=== PATIENT | male | born 1945 | race Caucasian/White ===

== ENCOUNTER 2019-05-27 13:26 | Emergency (ER) | payer OTHER, MEDICAID ==
[~2019-05-27] VITALS: Ht 170.2 cm; Wt 68.0 kg
--- NOTE | 2019-05-27 13:26 | NUR ---
Patient BIBA BLS, transferred to bed 6. RN evaluating patient at bedside.
[2019-05-27 13:32] VITALS: BP 120/76
--- NOTE | 2019-05-27 13:40 | NUR ---
PATIENT ASSESSMENT COMPLETED AT THIS TIME. PATIENT SUPINE IN BED. SIDE RAILS UP X2. HOOKED UP TO MONITOR. AAO, WILL MONITOR CLOSELY.
[2019-05-27] MEDS ORDERED: HYDROcodone/APAP 5/325 MG 1 TAB TAB PO ONE ×2 (14:05→17:20)
[2019-05-27] MEDS ORDERED: ONDANSETRON 4 MG ODT PO ONE (14:05)
--- NOTE | 2019-05-27 14:26 | NUR ---
Patient taken to CT scan via gurney by [facility].
--- NOTE | 2019-05-27 14:26 | NUR ---
PT LEFT TO CT VIA RNEY
[2019-05-27 14:28] LABS: BASOPHILS % (AUTO) 0.5 % (0.0-2.0); EOSINOPHILS # (AUTO) 0.1 K/uL (0-0.4); EOSINOPHILS % (AUTO) 1.4 % (0.0-4.0); HEMATOCRIT 31.5 % (36-52); HEMOGLOBIN 9.9 g/dL (12.0-18.0); LYMPHOCYTES # (AUTO) 1.3 K/uL (2.0-11.5); LYMPHOCYTES % (AUTO) 15.4 % (20.5-51.1); MEAN CORPUSCULAR HEMOGLOBIN 25 pg (27-31); MEAN CORPUSCULAR HGB CONC 31 g/dL (33-37); MEAN CORPUSCULAR VOLUME 80.6 fL (80-94); MONOCYTES # (AUTO) 0.6 K/uL (0.8-1.0); MONOCYTES % (AUTO) 6.6 % (1.7-9.3); NEUTROPHILS # (AUTO) 6.7 K/uL (1.8-7.7); NEUTROPHILS % (AUTO) 76.1 % (42.2-75.2); PLATELET COUNT (AUTO) 558 K/uL (140-450); RED CELL DISTRIBUTION WIDTH 17.7 % (11.6-13.7); WHITE BLOOD COUNT (AUTO) 8.8 K/uL (4.8-10.8)
--- NOTE | 2019-05-27 14:39 | NUR ---
PT RETURNED FROM CT
[2019-05-27] MEDS ORDERED: PAX10 PO (14:46)
[2019-05-27] MEDS ORDERED: LINA145C PO (14:46)
[2019-05-27] MEDS ORDERED: SULF-58 PO (14:46)
[2019-05-27 14:48] LABS: CARBON DIOXIDE 26.4 mmol/L (21-32); CHLORIDE 97 mmol/L (98-107); CREATININE 1.1 mg/dL (0.7-1.3); GLUCOSE 136 mg/dL (74-106); POTASSIUM 4.4 mmol/L (3.5-5.1); SODIUM SERUM 135 mmol/L (136-145); UREA NITROGEN, BLOOD 17 mg/dL (7-18)
[2019-05-27 14:54] LABS: ALBUMIN 2.9 g/dL (3.4-5.0); ASPARTATE AMINOTRANSFERASE 9 U/L (15-37); LIPASE 69 U/L (73-393); TOTAL BILIRUBIN 0.2 mg/dL (0.0-1.0)
--- NOTE | 2019-05-27 16:15 | NUR ---
pt resting in bed, no new needs at this time.
--- NOTE | 2019-05-27 16:44 | NUR ---
CALLED LAB TO CHECK ON URINE THAT WAS SENT AT 1355, PER NABEEL, "IT IS NOT DONE YET"
--- NOTE | 2019-05-27 16:49 | NUR ---
SENT ANOTHER URINE SAMPLE TO LAB, HANDED IT OFF TO NABEEL.
[2019-05-27 17:17] LABS: APPEARANCE,URINE CLOUDY (CLEAR); BILIRUBIN,URINE NEGATIVE (NEGATIVE); BLOOD, URINE 2+ (NEGATIVE); COLOR,URINE YELLOW (YELLOW); LEUKOCYTE ESTERASE ,URINE 3+ (NEGATIVE); NITRITE, URINE NEGATIVE (NEGATIVE); UGLUCOSE NEGATIVE (NEGATIVE)
--- NOTE | 2019-05-27 17:35 | NUR ---
PT REFUSED NORCO, STATES HE WANTS MORPHINE. NORCO TABLET WASTED WITH EMRE HO DUE TO IT ALREADY BEING OPENED. DR. MOSES MADE AWARE AND HE WILL ORDER MORPHINE FOR HIM
[2019-05-27 17:43] LABS: WBC,URINE 80-100 /HPF (0-5); YEAST,URINE Few /HPF (None Seen)
[2019-05-27 17:45] LABS: TRICHOMONAS,URINE Moderate /HPF (None Seen)
[2019-05-27] MEDS ORDERED: MORPHINE SULFATE 4 MG/ML SYR IM ONE (17:45)
--- NOTE | 2019-05-27 18:16 | NUR ---
Dr. Campa is re-evaluating the patient at bedside.
[2019-05-27 19:00] VITALS: BP 112/64
--- NOTE | 2019-05-27 19:01 | NUR ---
Patient discharged with v/s stable. Written and verbal after care instructions given and explained. Patient alert, oriented and verbalized understanding of instructions. Ambulatory with steady gait. All questions addressed prior to discharge. ID band removed. Patient advised to follow up with PMD. Rx of NORCO & METRONIDAZOLE given. Patient educated on indication of medication including possible reaction and side effects. Opportunity to ask questions provided and answered.
--- NOTE | 2019-05-29 18:17 | NUR ---
ATTEMPT MADE TO CONTACT PT TO INFORM OF POSTIVE URINE CULTURE, PT ANSWERED AND STATED "CALL MY SON" BUT GAVE INCOMPLETE PHONE NUMBER. WILL TRY TO RECONTACT PT.
== END 2019-05-27 19:01 | disposition home or self-care (01) ==
LOC: MED 13:26
DX: S32.010A Wedge compression fracture of first lumbar vertebra, initial encounter for closed fracture (principal); A59.09 Other urogenital trichomoniasis; I10 Essential (primary) hypertension; Z86.73 Personal history of transient ischemic attack (TIA), and cerebral infarction without residual deficits; X58.XXXA Exposure to other specified factors, initial encounter; Y93.89 Activity, other specified; Y92.89 Other specified places as the place of occurrence of the external cause; Y99.8 Other external cause status
CPT/HCPCS: 36415; 74176; 80053; 81001; 83690; 85025; 87086; 87186; 96372; 99284; J2270; Q0162

== ENCOUNTER 2019-07-22 13:25 | Inpatient (IN) | payer OTHER, MEDICAID ==
[~2019-07-22] VITALS: Ht 172.7 cm; Wt 72.6 kg
[~2019-07-22 13:25] MED LIST: LINA145C PO; PAX10 PO; SULF-58 PO
--- NOTE | 2019-07-22 13:25 | NUR ---
Patient BIBA ALS accompanied by [facility], transferred to bed 5. RN evaluating patient at bedside.
--- NOTE | 2019-07-22 13:25 | NUR ---
73 y/o M biba for generalized weakness since this morning. Pt is bedbound due to neck surgery in 2018. Pt able to move left upper extremitiy. Pt at baseline. A&O x4. GCS 15. Pt c/o suprapubic pain, pain level 8/10 pressure pain. Pt has chan in place. Rash is noted to left lower leg. Redness and blistering. Pt reports feeling a burning sensation to left lower leg. HOB elevated, bed in lowest position, bed rail up x1. Waiting for ERMD to evaluate pt. Allergies: codeine Med hx: HTN
[2019-07-22 13:38] VITALS: BP 132/71
--- NOTE | 2019-07-22 14:03 | NUR ---
Dr. Moon is evaluating the patient at bedside.
[2019-07-22] MEDS ORDERED: NACL 0.9% 2,200 ML IV ONE (14:05)
--- NOTE | 2019-07-22 14:17 | NUR ---
EKG completed by EMT at bedside.
--- NOTE | 2019-07-22 14:20 | NUR ---
technical operations specialist at bedside.
--- NOTE | 2019-07-22 14:25 | NUR ---
1425-# 16 FR Choi catheter with 10 ml utilizing sterile technique. Immediate return of YELLOW ml urine noted. Bedside drainage bag placed below level of bladder. Urine sample collected and sent to lab. Pt tolerated procedure GOOD.
[2019-07-22 14:44] LABS: BASOPHILS # (AUTO) 0.1 K/uL (0.00-0.22); BASOPHILS % (AUTO) 0.5 % (0.0-2.0); EOSINOPHILS # (AUTO) 0.2 K/uL (0-0.4); EOSINOPHILS % (AUTO) 2.2 % (0.0-4.0); HEMATOCRIT 32.2 % (36-52); HEMOGLOBIN 9.9 g/dL (12.0-18.0); LYMPHOCYTES # (AUTO) 1.4 K/uL (2.0-11.5); LYMPHOCYTES % (AUTO) 13.6 % (20.5-51.1); MEAN CORPUSCULAR HEMOGLOBIN 24 pg (27-31); MEAN CORPUSCULAR HGB CONC 31 g/dL (33-37); MEAN CORPUSCULAR VOLUME 79.6 fL (80-94); MONOCYTES # (AUTO) 0.7 K/uL (0.8-1.0); MONOCYTES % (AUTO) 6.2 % (1.7-9.3); NEUTROPHILS # (AUTO) 8.2 K/uL (1.8-7.7); NEUTROPHILS % (AUTO) 77.5 % (42.2-75.2); PLATELET COUNT (AUTO) 481 K/uL (140-450); RED BLOOD CELL COUNT(AUTO) 4.05 MIL/uL (4.20-6.10); RED CELL DISTRIBUTION WIDTH 21.4 % (11.6-13.7); WHITE BLOOD COUNT (AUTO) 10.6 K/uL (4.8-10.8)
[2019-07-22 14:46] LABS: APPEARANCE,URINE CLEAR (CLEAR); BILIRUBIN,URINE 1+ (NEGATIVE); BLOOD, URINE 3+ (NEGATIVE); COLOR,URINE YELLOW (YELLOW); LEUKOCYTE ESTERASE ,URINE 3+ (NEGATIVE); NITRITE, URINE POSITIVE (NEGATIVE); PH,URINE 5.5 (5.0-9.0); UGLUCOSE NEGATIVE (NEGATIVE)
[2019-07-22 14:52] LABS: HYALINE CASTS, URINE 0-10 /LPF (None Seen); RBC,URINE 50-80 /HPF (0-5); WBC,URINE 80-100 /HPF (0-5)
[2019-07-22 15:03] LABS: PROTHROMBIN TIME 9.9 secs (10.8-13.4)
[2019-07-22] MEDS ORDERED: KETOROLAC 30 MG/ML VIAL IVP ONE (15:05)
--- NOTE | 2019-07-22 15:06 | NUR ---
Note ranjeet in EDM - 07/22/19 at 1538 by STEPHENIEJJ # 16 FR Choi catheter with 10 ml utilizing sterile technique. Immediate return of YELLOW ml urine noted. Bedside drainage bag placed below level of bladder. Urine sample collected and sent to lab. Pt tolerated procedure GOOD.
[2019-07-22] MEDS ORDERED: LEVOFLOXACIN 500 MG/D5W PREMIX 100 ML IV ONE (15:35)
[2019-07-22 15:36] LABS: ALBUMIN 2.9 g/dL (3.4-5.0); ANION GAP 11.9 (8-16); ASPARTATE AMINOTRANSFERASE 12 U/L (15-37); CARBON DIOXIDE 29.9 mmol/L (21-32); CHLORIDE 100 mmol/L (98-107); CREATININE 0.8 mg/dL (0.6-1.3); GLUCOSE 89 mg/dL (74-106); POTASSIUM 3.8 mmol/L (3.5-5.1); SODIUM SERUM 138 mmol/L (136-145); TOTAL BILIRUBIN 0.2 mg/dL (0.0-1.0); UREA NITROGEN, BLOOD 11 mg/dL (7-18)
[2019-07-22] MEDS: NACL 0.9% 1,000 ML IV SCH (15:42)
[2019-07-22] MEDS ORDERED: ONDANSETRON 4 MG/2 ML VIAL IM/IVP PRN (15:45)
[2019-07-22] MEDS ORDERED: ACETAMINOPHEN 325 MG TAB PO PRN (15:45)
[2019-07-22] MEDS ORDERED: MORPHINE SULFATE 2 MG/ML SYR IVP PRN (15:45)
[2019-07-22] MEDS ORDERED: VANCOMYCIN PER PHARMACY MC PRN (16:20)
[2019-07-22 16:34] LABS: CHOL/HDL RATIO 6.5 (1-4.5); FREE T4 (FREE THYROXINE) 1.08 ng/dL (0.76-1.46); MAGNESIUM 1.9 mg/dL (1.8-2.4); PHOSPHORUS 2.9 mg/dL (2.5-4.9); THYROID STIMULATING HORMONE 1.37 uIU/mL (0.34-3.74)
[2019-07-22 16:40] VITALS: BP 151/77
--- NOTE | 2019-07-22 16:40 | NUR ---
Patient will be admitted to care of Dr. Gallo. Admited to [facility]. Will go to room 110A. Belongings list completed. Report given to EMRE Elizabeth.
--- NOTE | 2019-07-22 16:40 | NUR ---
Transfer of care and report given to EMRE Elizabeth
--- NOTE | 2019-07-22 16:40 | NUR ---
RECIEVE BEDSIDE REPORT FROM ER NURSE, PRATIMA, PT BROUGHT IN ON CARLEE, PT IS STABLE, IV SITE IS FUA 24G, RUNNING NORMAL SALINE BOLUS, DOMINGUEZ CATHETER IN PLACE WITH YELLOW URINE, TRANSFERRED PT ONTO BED WITHOUT PROBLEMS, INTRODUCE PT TO ROOM, UPDATE WHITEBOARD, CALL LIGHT WITHIN REACH.
[2019-07-22] MEDS ORDERED: ENAL5TAB34 PO (17:03)
[2019-07-22] MEDS: MORPHINE SULFATE 2 MG/ML SYR IVP PRN ×2 (17:30→21:43)
[2019-07-22] MEDS ORDERED: INFLUENZA VACCINE QUAD 0.5 ML SYR IMVAC PRN (18:25)
[2019-07-22] MEDS: VANCOMYCIN 1,000 MG in DEXTROSE 5% 250 ML IV SCH (18:25)
--- NOTE | 2019-07-22 18:25 | NUR ---
ADMINISTERED ORDERED MEDICATION, EDUCATION GIVEN, PT VERBALIZED UNDERSTANDING, PT IS STABLE, NO SIGNS OF DISTRESS NOTED, AT BEDSIDE, CALL LIGHT WITHIN REACH.
--- NOTE | 2019-07-22 19:24 | NUR ---
GAVE BEDSIDE REPORT TO NIGHT NURSE FOR CONTINUITY OF CARE, PT IS STABLE, CALL LIGHT WITHIN REACH.
--- NOTE | 2019-07-22 19:25 | NUR ---
RECEIVED REPORT FROM DAY SHIFT NURSE. PT LYING IN BED. AAOX4. AT BEDSIDE. DENIES PAIN OR SOB. ON ROOM AIR. PT IS PARAPLEGIC, WEAKNESS ON RIGHT ARM. DOMINGUEZ CATH IN PLACE DRAINING CLEAR YELLOW URINE. PT HAS RASH WITH BLISTERS ON LEFT LEG. DISCUSSED PLAN OF CRAE, PT VERBALIZED UNDERSTANDING. SAFETY PRECAUTION IN PLACE. CALL LIGHT WITHIN REACH.
[2019-07-22 20:00] VITALS: BP 115/69
[2019-07-22] MEDS ORDERED: PIPERACILLIN/TAZOBACTAM 3.375 GM in DEXTROSE 5% 50 ML IV SCH (21:00)
[2019-07-22] MEDS ORDERED: PIPERACILLIN/TAZOBACTAM 3.375 GM VIAL IV ONE (21:14)
--- NOTE | 2019-07-22 21:43 | NUR ---
PT C/O PAIN 01/22. MORPHINE 2 MG IVP GIVEN.
--- NOTE | 2019-07-22 23:00 | NUR ---
PT LYING IN BED, WATCHING TV. ALL NEEDS ATTENDED AT THIS TIME. DENIES PAIN OR SOB.
[2019-07-23] VITALS: BP 145/76
[2019-07-23] MEDS ORDERED: MELATONIN 3 MG TAB PO PRN (01:00)
--- NOTE | 2019-07-23 01:05 | NUR ---
PT C/O UNABLE TO SLEEP. DR. ASHBY ORDERED MELATONIN 3 MG PO.
--- NOTE | 2019-07-23 03:00 | NUR ---
PT SLEEPING. NO S/S OF RESP DISTRESS. NO S/S OF PAIN OR DISCOMFORT. PT KEPT COMFORTABLE. CALL LIGHT WITHIN REACH.
[2019-07-23] MEDS: NACL 0.9% 1,000 ML IV SCH ×3 (04:30→21:42)
--- NOTE | 2019-07-23 05:00 | NUR ---
PT SLEEPING BUT WAKES EASILY. RESP EVEN AND UNLABORED. IVF INFUSING WELL. SAFETY PRECAUTION IN PLACE.
[2019-07-23 07:05] LABS: BASOPHILS # (AUTO) 0.1 K/uL (0.00-0.22); BASOPHILS % (AUTO) 0.9 % (0.0-2.0); EOSINOPHILS # (AUTO) 0.3 K/uL (0-0.4); EOSINOPHILS % (AUTO) 4.1 % (0.0-4.0); HEMATOCRIT 28.2 % (36-52); HEMOGLOBIN 8.6 g/dL (12.0-18.0); LYMPHOCYTES # (AUTO) 1.8 K/uL (2.0-11.5); LYMPHOCYTES % (AUTO) 23.9 % (20.5-51.1); MEAN CORPUSCULAR HEMOGLOBIN 24 pg (27-31); MEAN CORPUSCULAR HGB CONC 31 g/dL (33-37); MEAN CORPUSCULAR VOLUME 78.9 fL (80-94); MONOCYTES # (AUTO) 0.6 K/uL (0.8-1.0); MONOCYTES % (AUTO) 7.4 % (1.7-9.3); NEUTROPHILS # (AUTO) 4.9 K/uL (1.8-7.7); NEUTROPHILS % (AUTO) 63.7 % (42.2-75.2); PLATELET COUNT (AUTO) 413 K/uL (140-450); RED BLOOD CELL COUNT(AUTO) 3.58 MIL/uL (4.20-6.10); RED CELL DISTRIBUTION WIDTH 21.7 % (11.6-13.7); WHITE BLOOD COUNT (AUTO) 7.6 K/uL (4.8-10.8)
--- NOTE | 2019-07-23 07:30 | NUR ---
ENDORSED PT TO DAY SHIFT NURSE. PT IN STABLE CONDITION.
--- NOTE | 2019-07-23 07:31 | NUR ---
RECEIVED BEDSIDE REPORT FROM NIGHT NURSE, PT AA0X4, RESTING IN BED, PT IS STABLE, NO SIGNS OF DISTRESS NOTED, ARVIN 24G RUNNING NS AT 100ML, SAFETY MEASURES IN PLACE, CALL LIGHT WITHIN REACH, WILL CONTINUE TO MONITOR,
[2019-07-23 07:52] LABS: ANION GAP 9.8 (8-16); CARBON DIOXIDE 28.4 mmol/L (21-32); CHLORIDE 108 mmol/L (98-107); MAGNESIUM 1.8 mg/dL (1.8-2.4); POTASSIUM 4.2 mmol/L (3.5-5.1); SODIUM SERUM 142 mmol/L (136-145)
[2019-07-23 07:53] LABS: CREATININE 0.9 mg/dL (0.6-1.3); GLUCOSE 100 mg/dL (74-106); UREA NITROGEN, BLOOD 10 mg/dL (7-18)
[2019-07-23 08:00] VITALS: BP 140/70
[2019-07-23 08:07] LABS: T4 (THYROXINE) 8.9 ug/dL (4.5-12.0)
[2019-07-23] MEDS: LACTOBACILLUS RHAMNOSUS GG 1 EACH CAP PO SCH (08:38)
[2019-07-23] MEDS: ENALAPRIL 5 MG TAB PO SCH (08:39)
[2019-07-23] MEDS: PARoxetine 20 MG TAB PO SCH (08:39)
[2019-07-23] MEDS: MORPHINE SULFATE 2 MG/ML SYR IVP PRN (08:41)
--- NOTE | 2019-07-23 08:41 | NUR ---
GAVE PT MORPHINE FOR SEVER ABDOMINAL PAIN OF 8/10, CRAMPING AND PRESSURE IN THE AREA, PT EDUCATION GIVEN, PT VERBALIZE UNDERSTANDING, PT TOLERATED WELL, CALL LIGHT WITHIN REACH.
--- NOTE | 2019-07-23 08:53 | NUR ---
ADMINISTERED ORDERED MEDICATION, EDUCATION GIVEN, PT VERBALIZED UNDERSTANDING, PT IS STABLE, CALL LIGHT WITHIN REACH.
--- NOTE | 2019-07-23 11:26 | NUR ---
PT IS STABLE, REPOSITION PT, PT TOLERATED CHANGE WELL, CALL LIGHT WITHIN REACH.
[2019-07-23 11:57] LABS: CHOL/HDL RATIO 6.6 (1-4.5)
[2019-07-23] MEDS: VANCOMYCIN 1,000 MG in DEXTROSE 5% 250 ML IV SCH (12:33)
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
[2019-07-23] MEDS: PETROLATUM WHITE 30 GM TUBE TP SCH (12:35)
[2019-07-23 16:00] VITALS: BP 117/76
[2019-07-23] MEDS: HYDROcodone/APAP 7.5/325 MG 1 TAB PO PRN (16:54)
--- NOTE | 2019-07-23 16:54 | NUR ---
GAVE PT NORCO FOR ABDOMINAL PAIN OF 66/10, DR CRAIN AWARE PT'S BP: 117/76 AND HR:54, DR SAID OKAY TO GIVE MEDICATION, PT EDUCATION GIVEN, PT TOLERATED WELL, PT IS STABLE, CALL LIGHT WITHIN REACH.
--- NOTE | 2019-07-23 19:29 | NUR ---
GAVE BEDSIDE REPORT TO NIGHT NURSE FOR CONTINUITY OF CARE, PT IS STABLE
--- NOTE | 2019-07-23 19:30 | NUR ---
RECEIVED BEDSIDE REPORT FROM DAY SHIFT NURSE. PATIENT IS AWAKE, ALERT, AND COOPERATIVE. RESPIRATION EVEN UNLABORED ON ROOM AIR. NO DISTRESS NOTED. SKIN IS WARM AND DRY. IV PATENT AND INTACT. FAMILY MEMBER AT BEDSIDE. ALL SAFETY MEASURES IN PLACE. BED IS AT LOW POSITION. CALL LIGHT WITHIN REACH AND VERBALIZES ITS USE. WILL CONTINUE TO MONITOR.
--- NOTE | 2019-07-23 19:56 | NUR ---
PAIN LEVEL 6/10
--- NOTE | 2019-07-23 20:15 | NUR ---
INITIAL ASSESSMENT DONE. VITALS WERE TAKEN. DOMINGUEZ CATHETER NOTED DRAINING YELLOW URINE. LEFT LOWER LEG CELLULITIS WITH BLISTER NOTED. WILL CONTINUE TO MONITOR.
[2019-07-23] MEDS: MUPIROCIN CA NASAL 2% 1GM TUBE NS SCH (20:35)
[2019-07-23] MEDS ORDERED: DICYCLOMINE HCL LIQUID 10 MG/5 ML UDC PO SCH (20:35)
[2019-07-23] MEDS: ATORVASTATIN 20 MG TAB PO SCH (20:35)
[2019-07-23] MEDS: CHLORHEXADINE GLUC 2% CLOTH TP SCH (20:36)
--- NOTE | 2019-07-23 20:36 | NUR ---
ALL SCHEDULED MEDS WERE GIVEN PER ORDER. PROVIDED CHLORHEXIDINE WIPES PER ORDER. WILL CONTINUE TO MONITOR.
--- NOTE | 2019-07-23 21:00 | NUR ---
PATIENT COMPLAINED OF ABDOMINAL PAIN. PRN ABDOMINAL PAIN MEDICATION GIVEN PER ORDER. WILL CONTINUE TO MONITOR.
--- NOTE | 2019-07-23 22:04 | NUR ---
CHECKED PATIENT. PATIENT WATCHING TV RESPIRATION EVEN UNLABORED ON ROOM AIR. NO DISTRESS NOTED. WILL CONTINUE TO MONITOR.
--- NOTE | 2019-07-23 23:55 | NUR ---
VITALS WERE TAKEN. PATIENT IN STABLE CONDITION. NO DISTRESS NOTED. WILL CONTINUE TO MONITOR.
[2019-07-24] VITALS: BP 125/66
--- NOTE | 2019-07-24 01:52 | NUR ---
CHECKED PATIENT. PATIENT SLEEPING RESPIRATION EVEN UNLABORED ON ROOM AIR. NO DISTRESS NOTED. WILL CONTINUE TO MONITOR.
[2019-07-24] MEDS: NACL 0.9% 1,000 ML IV SCH ×2 (03:26→18:21)
--- NOTE | 2019-07-24 03:55 | NUR ---
CHECKED PATIENT. PATIENT IS SLEEPING RESPIRATION EVEN UNLABORED ON ROOM AIR. NO DISTRESS NOTED. WILL CONTINUE TO MONITOR.
[2019-07-24 06:27] LABS: ANION GAP 10.6 (8-16); CARBON DIOXIDE 29.3 mmol/L (21-32); CHLORIDE 109 mmol/L (98-107); CREATININE 0.8 mg/dL (0.6-1.3); GLUCOSE 101 mg/dL (74-106); POTASSIUM 3.9 mmol/L (3.5-5.1); SODIUM SERUM 145 mmol/L (136-145); UREA NITROGEN, BLOOD 10 mg/dL (7-18)
[2019-07-24 06:30] LABS: BASOPHILS # (AUTO) 0.1 K/uL (0.00-0.22); BASOPHILS % (AUTO) 1.3 % (0.0-2.0); EOSINOPHILS # (AUTO) 0.3 K/uL (0-0.4); EOSINOPHILS % (AUTO) 4.8 % (0.0-4.0); HEMATOCRIT 28.6 % (36-52); HEMOGLOBIN 8.9 g/dL (12.0-18.0); LYMPHOCYTES # (AUTO) 1.6 K/uL (2.0-11.5); LYMPHOCYTES % (AUTO) 26.3 % (20.5-51.1); MEAN CORPUSCULAR HEMOGLOBIN 25 pg (27-31); MEAN CORPUSCULAR HGB CONC 31 g/dL (33-37); MEAN CORPUSCULAR VOLUME 79.2 fL (80-94); MONOCYTES # (AUTO) 0.5 K/uL (0.8-1.0); NEUTROPHILS # (AUTO) 3.7 K/uL (1.8-7.7); NEUTROPHILS % (AUTO) 59.6 % (42.2-75.2); PLATELET COUNT (AUTO) 408 K/uL (140-450); RED BLOOD CELL COUNT(AUTO) 3.61 MIL/uL (4.20-6.10); RED CELL DISTRIBUTION WIDTH 21.6 % (11.6-13.7); WHITE BLOOD COUNT (AUTO) 6.2 K/uL (4.8-10.8)
[2019-07-24 06:34] LABS: MAGNESIUM 1.6 mg/dL (1.8-2.4); PHOSPHORUS 3.3 mg/dL (2.5-4.9)
[2019-07-24] MEDS: VANCOMYCIN 1,000 MG in DEXTROSE 5% 250 ML IV SCH ×2 (06:44→23:26)
--- NOTE | 2019-07-24 07:09 | NUR ---
ENDORSED PATIENT TO DAY SHIFT NURSE. PATIENT IS IN STABLE CONDITION.
--- NOTE | 2019-07-24 07:10 | NUR ---
RECEIVED BEDSIDE REPORT FROM NIGHT NURSE, PT IS AAOX4, PT IS STABLE, RESPIRATIONS ARE EVEN AND UNLABORED ON ROOM AIR, NO SIGNS OF DISTRESS NOTED, ARVIN 24G RUNNING NS AT 100ML/H, SAFETY MEASURES IN PLACE, UPDATE WHITE BOARD AND INTRODUCE SELF, CALL LIGHT WITHIN REACH.
[2019-07-24 08:00] VITALS: BP 146/77
--- NOTE | 2019-07-24 08:22 | NUR ---
PATIENT HAS BEEN SCREENED AND CATEGORIZED MODERATE NUTRITION RISK. PATIENT WILL BE SEEN WITHIN 3-5 DAYS OF ADMISSION. 07/25/19 - 07/27/19 [facility]STA [facility] MBA,RD
[2019-07-24] MEDS: PETROLATUM WHITE 30 GM TUBE TP SCH (09:00)
[2019-07-24] MEDS ORDERED: MAG SULF 2000 MG/WATER PREMIX 50 ML IV SCH (09:00)
[2019-07-24] MEDS: LACTOBACILLUS RHAMNOSUS GG 1 EACH CAP PO SCH (09:15)
[2019-07-24] MEDS: ENALAPRIL 5 MG TAB PO SCH (09:16)
[2019-07-24] MEDS: PARoxetine 20 MG TAB PO SCH (09:16)
[2019-07-24] MEDS: DICYCLOMINE HCL LIQUID 10 MG/5 ML UDC PO PRN (09:17)
--- NOTE | 2019-07-24 09:17 | NUR ---
GAVE PT BENTYL FOR ABDOMINAL PAIN, EDUCATION GIVEN, PT TOLERATED WELL, PT IS STABLE, CALL LIGHT WITHIN REACH.
[2019-07-24] MEDS: DOCUSATE SODIUM 100 MG GELCAP PO PRN (09:29)
--- NOTE | 2019-07-24 09:29 | NUR ---
GAVE PT COLACE FOR CONSTIPATION, EDUCATION GIVEN, PT VERBALIZED UNDERSTANDING, PT TOLERATED WELL, PT IS STABLE, CALL LIGHT WITHIN REACH.
--- NOTE | 2019-07-24 11:02 | NUR ---
PT IS ASLEEP IN BED, PT IS STABLE, NO SIGNS OF DISTRESS NOTED, RESPIRATIONS ARE EVEN AND UNLABORED ON ROOM AI, CALL LIGHT WITHIN REACH.
[2019-07-24] MEDS: HYDROcodone/APAP 7.5/325 MG 1 TAB PO PRN (13:02)
--- NOTE | 2019-07-24 13:02 | NUR ---
GAVE NORCO FOR ABDOMINAL PAIN OF 6/10, PT STATES IT IS THROBBING, PT EDUCATION GIVEN, PT VERBALIZE UNDERSTANDING, PT TOLERATED WELL, AT BEDSIDE, CALL LIGHT WITHIN REACH.
--- NOTE | 2019-07-24 15:13 | NUR ---
PT RESTING IN BED, WATCHING TV, NO SIGNS OF DISTRESS NOTED, RESPIRATIONS ARE EVEN AND UNLABORED ON ROOM AIR, CALL LIGHT WITHIN REACH.
[2019-07-24 16:00] VITALS: BP 99/56
[2019-07-24] MEDS: MORPHINE SULFATE 2 MG/ML SYR IVP PRN (17:29)
--- NOTE | 2019-07-24 17:29 | NUR ---
GAVE MORPHINE FOR SEVERE ABDOMINAL PAIN OF 8/10, PT IS RUBBING SITE, STATES HE CAN TOLERATE THE PAIN, MEDICATION EDUCATION GIVEN, PT VERBALIZED UNDERSTANDING, PT TOLERATED MEDICATION WELL, PT IS STABLE, NO SIGNS OF DISTRESS, AT BEDSIDE, CALL LIGHT WITHIN REACH.
--- NOTE | 2019-07-24 19:13 | NUR ---
GAVE REPORT TO NIGHT NURSE FOR CONTINUITY OF CARE, PT IS STABLE.
--- NOTE | 2019-07-24 19:15 | NUR ---
RECEIVED BEDSIDE REPORT FROM DAY SHIFT NURSE. PATIENT IS AWAKE, ALERT, AND COOPERATIVE. RESPIRATION EVEN UNLABORED ON ROOM AIR. NO DISTRESS NOTED. SKIN IS WARM AND DRY. IV PATENT AND INTACT. DOMINGUEZ CATHETER DRAINING YELLOW URINE. FAMILY AT BEDSIDE. PLAN OF CARE WAS DISCUSSED. ALL SAFETY MEASURES IN PLACE. BED IS AT LOW POSITION. CALL LIGHT WITHIN REACH AND VERBALIZES ITS USE.
[2019-07-24] MEDS: CHLORHEXADINE GLUC 2% CLOTH TP SCH (19:16)
[2019-07-24] MEDS: MUPIROCIN CA NASAL 2% 1GM TUBE NS SCH (19:16)
--- NOTE | 2019-07-24 20:10 | NUR ---
INITIAL ASSESSMENT DONE. VITALS WERE TAKEN. PATIENT IN STABLE CONDITION. NO DISTRESS NOTED. WILL CONTINUE TO MONITOR.
[2019-07-24] MEDS: ATORVASTATIN 20 MG TAB PO SCH (21:06)
--- NOTE | 2019-07-24 21:10 | NUR ---
ALL SCHEDULED MEDS WERE GIVEN PER ORDER. NO ASE NOTED. WILL CONTINUE TO MONITOR.
--- NOTE | 2019-07-24 23:04 | NUR ---
CHECKED PATIENT. PATIENT SLEEPING RESPIRATION EVEN UNLABORED ON ROOM AIR. NO DISTRESS NOTED. WILL CONTINUE TO MONITOR.
[2019-07-25] VITALS: BP 126/62
--- NOTE | 2019-07-25 00:15 | NUR ---
VITALS WERE TAKEN. PATIENT IN STABLE CONDITION. NO DISTRESS NOTED. WILL CONTINUE TO MONITOR.
--- NOTE | 2019-07-25 02:07 | NUR ---
CHECKED PATIENT. PATIENT SLEEPING RESPIRATION EVEN UNLABORED ON ROOM AIR. NO DISTRESS NOTED, WILL CONTINUE TO MONITOR.
[2019-07-25] MEDS: NACL 0.9% 1,000 ML IV SCH ×2 (03:42→13:41)
--- NOTE | 2019-07-25 04:20 | NUR ---
PROVIDED GOOD PERICARE AND DOMINGUEZ CATHETER CARE.
--- NOTE | 2019-07-25 07:14 | NUR ---
ENDORSED PATIENT TO DAY SHIFT NURSE. PATIENT IS IN STABLE CONDITION.
--- NOTE | 2019-07-25 07:15 | NUR ---
RECEIVED PATIENT FROM PANEL COVERER NURSE FOR CONTINUITY OF CARE. PATIENT IS SLEEPING AT THIS TIME, ANGUILLAN SPEAKING. RESPIRATIONS EVEN AND UNLABORED, ROOM AIR. VISIBLE CHEST RISE NOTED. NO EDEMA NOTED. ABDOMEN ROUND AND NONTENDER. REGULAR DIET. SKIN WARM, DRY, AND LEFT LOWER LEG CELLULITIS, OPEN TO AIR. IV IN THE LEFT ARM G24 RUNNING NS AT 100 ML/HR. PATIENT HAS DOMINGUEZ CATHETER. PATIENT IS BEDBOUND. CONTACT PRECAUTION FOR + MRSA NARES. BED IN LOW POSITION. CALL LIGHT IS WITHIN REACH. WILL CONTINUE TO MONITOR
--- NOTE | 2019-07-25 07:51 | NUR ---
AND THE RESIDENT DOCTORS MADE ROUNDS
[2019-07-25 07:53] LABS: BASOPHILS # (AUTO) 0.1 K/uL (0.00-0.22); EOSINOPHILS # (AUTO) 0.3 K/uL (0-0.4); EOSINOPHILS % (AUTO) 4.6 % (0.0-4.0); HEMATOCRIT 29.6 % (36-52); HEMOGLOBIN 9.1 g/dL (12.0-18.0); LYMPHOCYTES # (AUTO) 1.7 K/uL (2.0-11.5); LYMPHOCYTES % (AUTO) 22.5 % (20.5-51.1); MEAN CORPUSCULAR HEMOGLOBIN 24 pg (27-31); MEAN CORPUSCULAR HGB CONC 31 g/dL (33-37); MEAN CORPUSCULAR VOLUME 79.2 fL (80-94); MONOCYTES # (AUTO) 0.5 K/uL (0.8-1.0); MONOCYTES % (AUTO) 6.7 % (1.7-9.3); NEUTROPHILS # (AUTO) 4.9 K/uL (1.8-7.7); NEUTROPHILS % (AUTO) 65.2 % (42.2-75.2); PLATELET COUNT (AUTO) 434 K/uL (140-450); RED BLOOD CELL COUNT(AUTO) 3.73 MIL/uL (4.20-6.10); WHITE BLOOD COUNT (AUTO) 7.5 K/uL (4.8-10.8)
[2019-07-25 07:54] LABS: ANION GAP 11.2 (8-16); CARBON DIOXIDE 27.8 mmol/L (21-32); CHLORIDE 108 mmol/L (98-107); CREATININE 0.8 mg/dL (0.6-1.3); GLUCOSE 95 mg/dL (74-106); SODIUM SERUM 143 mmol/L (136-145); UREA NITROGEN, BLOOD 11 mg/dL (7-18)
[2019-07-25 07:57] LABS: MAGNESIUM 1.8 mg/dL (1.8-2.4); PHOSPHORUS 3.2 mg/dL (2.5-4.9)
[2019-07-25 08:00] VITALS: BP 159/76
[2019-07-25] MEDS: PARoxetine 20 MG TAB PO SCH (08:51)
[2019-07-25] MEDS: LACTOBACILLUS RHAMNOSUS GG 1 EACH CAP PO SCH (08:51)
--- NOTE | 2019-07-25 08:51 | NUR ---
GIVEN MORNING MEDICATIONS PO. GIVEN BENTYL FOR ABDOMINAL PAIN. HEPARIN IN THE ABDOMEN. PLATE IS 434. EXPLAINED TO PATIENT AND FAMILY MEDS AND SIDE EFFECTS. THEY VERBALIZED UNDERSTANDING. BED IN LOW POSITION. CALL LIGHT IS WITHIN REACH. WILL CONTINUE TO MONITOR
[2019-07-25] MEDS: ENALAPRIL 5 MG TAB PO SCH (08:52)
[2019-07-25] MEDS: DICYCLOMINE HCL LIQUID 10 MG/5 ML UDC PO PRN ×2 (08:53→13:21)
[2019-07-25] MEDS: PETROLATUM WHITE 30 GM TUBE TP SCH (09:06)
--- NOTE | 2019-07-25 09:09 | NUR ---
FANY WOUND CARE NURSE EXAMINED PATIENT WOUND. VERSATEL DRESSING IN PLACE
--- NOTE | 2019-07-25 09:25 | NUR ---
WOUND CARE EVALUATION NOTES: REASON FOR EVALUATION: LLE CELLULITIS AND A INTACT BLISTER WOUND ASSESSMENT DONE WITH THIS 73 Y/O MALE PT. ADMITTED WITH LLE CELLULITIS AND BLISTERS, WOUND ASSESSMENT DONE WITH DAUGHTER AND SON IN LAW AT BEDSIDE. PT IS AAX4, SKIN IS WARM AND DRY. BLE NO HAIR GROWTH, NO EDEMA TO BILATERAL LOWER LEGS. BILATERAL DORSAL PEDAL PULSES PRESENT. ACCORDING TO DAUGHTER THE ERYTHEMA AND SWELLING HAS IMPROVING A LOT. PLAN OF CARE DISCUSSED WITH PRIMARY RN, DAUGHTER AND PT. PT. VERBALIZING UNDERSTANDING INTEGUMENTARY: -LEFT LATERAL LOWER EXTREMITIES CLEAR FLUIDS BLISTER WITH SKIN INTACT, 4X3 CM, CLARK WOUND SKIN INTACT, NO ERYTHEMA, NO SWELLING, NO C/O PAIN -BLE DRYNESS SKIN INTACT RECOMMENDATIONS: -APPLY HYGRAGUARD TO BLE SKIN AREA BID AND LEAVE IT OPEN TO AIR -APPLY VERSATEL DRESSING TO LLE BLISTER CHANGE Q7 DAYS AND PRN -OFFLOAD BILATERAL HEELS BY PLACING PILLOWS UNDER CALVES AT ALL TIMES, UNLESS OTHERWISE CONTRAINDICATED -KEEP SKIN CLEAN AND DRY AT ALL TIMES. -PRESSURE REDISTRIBUTION SURFACE THERAPY. RECOMMENDATIONS DISCUSSED WITH PRIMARY RN. PLEASE CONTACT WOUND CARE NURSE FOR ANY QUESTIONS AND CHANGES IN SKIN CONDITION.
--- NOTE | 2019-07-25 11:32 | NUR ---
PATIENT IS AWAKE, SPEAKING WITH THE . DENIES ANY PAIN. BED IN LOW POSITION. CALL LIGHT IS WITHIN REACH. WILL CONTINUE TO MONITOR
--- NOTE | 2019-07-25 13:00 | NUR ---
APPLIED HYDRAGUARD IN THE BUTTOCK AREA.
[2019-07-25] MEDS: HYDRAGUARD CREAM TP SCH (13:10)
--- NOTE | 2019-07-25 13:21 | NUR ---
GIVEN BENTYL FOR ABD PAIN. GIVEN HYDRAGUARD. EXPLAINED TO PATIENT MEDS. PATIENT VERBALIZED UNDERSTANDING. BED IN LOW POSITION. CALL LIGHT IS WITHIN REACH. WILL CONTINUE TO MONITOR
[2019-07-25] MEDS: MORPHINE SULFATE 2 MG/ML SYR IVP PRN ×2 (14:30→21:50)
--- NOTE | 2019-07-25 14:30 | NUR ---
GIVEN MORPHINE FOR 9/10 ABDOMINAL PAIN. EXPLAINED TO PATIENT MED AND SIDE EFFECTS. PATIENT VERBALIZED UNDERSTANDING. BP IS 102/77, HR 81, O2SAT 97% ROOM AIR. BED IN LOW POSITION. CALL LIGHT IS WITHIN REACH. WILL CONTINUE TO MONITOR
[2019-07-25 16:00] VITALS: BP 119/63
[2019-07-25] MEDS: DOCUSATE SODIUM 100 MG GELCAP PO PRN (17:03)
--- NOTE | 2019-07-25 17:05 | NUR ---
HANG ROCEPHIN VIA IVPB. GIVEN COLACE FOR CONSTIPATION. EXPLAINED TO PATIENT MEDS AND SIDE EFFECTS. PATIENT VERBALIZED UNDERSTANDING. BED IN LOW POSITION. CALL LIGHT IS WITHIN REACH. WILL CONTINUE TO MONITOR
[2019-07-25] MEDS: VANCOMYCIN 1,000 MG in DEXTROSE 5% 250 ML IV SCH (17:58)
--- NOTE | 2019-07-25 18:03 | NUR ---
HANG VANCOMYCIN VIA IVPB. EXPLAINED TO PATIENT MED AND SIDE EFFECTS. PATIENT VERBALIZED UNDERSTANDING. BED IN LOW POSITION. CALL LIGHT IS WITHIN REACH. WILL CONTINUE TO MONITOR
--- NOTE | 2019-07-25 18:23 | NUR ---
PATIENT IS EATING DINNER AT THIS TIME. NO SIGNS OF DISTRESS NOTED. BED IN LOW POSITION. CALL LIGHT IS WITHIN REACH. IS FEEDING PATIENT
--- NOTE | 2019-07-25 19:19 | NUR ---
ENDORSED PATIENT TO COOPERATIVE EDUCATION COORDINATOR NURSE CONTINUITY OF CARE. PATIENT PATIENT IS STABLE CONDITION.
[2019-07-25] MEDS ORDERED: PIPERACILLIN/TAZOBACTAM 3.375 GM in DEXTROSE 5% 50 ML IV SCH ×2 (20:00→21:00)
--- NOTE | 2019-07-25 20:00 | NUR ---
RECEIVED PATIENT AWAKE AND ALERT IN BED. PT ON ROOM AIR, NO SOB OR S/S OF DISTRESS AT THIS TIME. DOMINGUEZ CATH IN PLACE, DRAINING CLEAR YELLOW URINE. BED LOWERED WITH CALL LIGHT WITHIN REACH. WILL CONTINUE TO MONITOR
[2019-07-25] MEDS ORDERED: PIPERACILLIN/TAZOBACTAM 3.375 GM VIAL IV ONE (21:30)
[2019-07-25] MEDS: ATORVASTATIN 20 MG TAB PO SCH (21:40)
--- NOTE | 2019-07-25 21:40 | NUR ---
ADMINISTERED DUE MEDICATIONS. PT TOLERATED WELL
[2019-07-25] MEDS: MUPIROCIN CA NASAL 2% 1GM TUBE NS SCH (21:41)
[2019-07-25] MEDS: CHLORHEXADINE GLUC 2% CLOTH TP SCH (21:46)
--- NOTE | 2019-07-25 22:00 | NUR ---
PT TURNED AND REPOSITIONED FOR COMFORT
[2019-07-26] MEDS ORDERED: PIPERACILLIN/TAZOBACTAM 3.375 GM VIAL IV ONE ×2 (00:46→05:52)
[2019-07-26] MEDS: NACL 0.9% 1,000 ML IV SCH ×3 (00:48→19:42)
[2019-07-26] MEDS: PIPERACILLIN/TAZOBACTAM 3.375 GM in DEXTROSE 5% 50 ML IV SCH ×4 (00:53→17:53)
[2019-07-26] MEDS: HYDRAGUARD CREAM TP SCH ×2 (01:01→14:30)
[2019-07-26 01:14] VITALS: BP 101/45
--- NOTE | 2019-07-26 07:30 | NUR ---
RECEIVED REPORT FROM RESIDENT CARE MANAGER RN NURSE AT BEDSIDE FOR CONTINUITY OF CARE. PATIENT AWAKE AND ALERT, RESPIRATIONS EVEN AND UNLABORED ON ROOM AIR, PATIENT C/O BACK PAIN, WILL ASSESS AND MEDICATE. PATIENT REPOSITIONED REQUESTED. UPDATED BOARD. UPDATED PATIENT WITH PLAN OF CARE. HE VERBALIZED UNDERSTANDING. IV SITE INTACT, PATENT, ASYMPTOMATIC, INFUSING IVF WELL. PATIENT HAS DOMINGUEZ CATHETER DRAINING TO GRAVITY WITH YELLOW CLEAN URINE. SAFETY AND ISOLATION PRECAUTIONS IN PLACE, BED IN LOWEST POSITION WITH ALARM AND BRAKES ON, CALL LIGHT WITHIN REACH, WILL CONTINUE TO MONITOR PATIENT.
--- NOTE | 2019-07-26 07:34 | NUR ---
PATIENT MEDICATED FOR PAIN WITH PRN PAIN MEDICATION. PATIENT TOLERATED IT WELL. PATIENT NOW COMFORTABLY LYING IN BED. PATIENT HAS NO COMPLAINTS. SAFETY AND ISOLATION PRECAUTION IN PLACE, CALL LIGHT WITHIN REACH, WILL CONTINUE TO MONITOR PATIENT.
[2019-07-26 08:00] VITALS: BP 148/68
--- NOTE | 2019-07-26 08:30 | NUR ---
DAUGHTER IN TO ASSIST PATIENT WITH BREAKFAST. PATIENT TOLERATING IT WELL. NO COMPLAINTS AT THIS TIME. WILL CONTINUE TO MONITOR PATIENT.
[2019-07-26] MEDS: PETROLATUM WHITE 30 GM TUBE TP SCH (09:20)
[2019-07-26] MEDS: PARoxetine 20 MG TAB PO SCH (09:20)
[2019-07-26] MEDS: LACTOBACILLUS RHAMNOSUS GG 1 EACH CAP PO SCH (09:20)
[2019-07-26] MEDS: ENALAPRIL 5 MG TAB PO SCH (09:20)
[2019-07-26] MEDS: VANCOMYCIN 1,000 MG in DEXTROSE 5% 250 ML IV SCH (11:38)
[2019-07-26] MEDS: MORPHINE SULFATE 2 MG/ML SYR IVP PRN ×2 (12:54→17:51)
[2019-07-26] MEDS ORDERED: ZOS3.375I IV (15:59)
[2019-07-26 16:00] VITALS: BP 138/69
[2019-07-26] MEDS ORDERED: BACTO TP (16:08)
[2019-07-26] MEDS ORDERED: CHLO480L2 TP (16:13)
[2019-07-26] MEDS ORDERED: ATOR10TA PO (16:13)
--- NOTE | 2019-07-26 16:35 | NUR ---
[facility] PERSONNEL IN TO ASSESS THE PATIENT. WILL WAIT FOR HER EVALUATION.
--- NOTE | 2019-07-26 18:30 | NUR ---
NO S/S OF REACTION FROM FLU VACCINE GIVEN. WILL CONTINUE TO MONITOR PATIENT.
--- NOTE | 2019-07-26 19:20 | NUR ---
REPORT GIVEN TO LENNY ANDREA AT [facility]. THEY REQUESTED FOR DOMINGUEZ CATHETER TO BE REMOVED. PATIENT WILL BE TRANSFERRED BY [facility] SCHEDULED AT 1930 TO ROOM #208C UNDER DR. MORALES. PATIENT AND JULISSA AT BEDSIDE AND AWARE. WILL ENDORSE TO YARN FINISHER NURSE FIOR.
--- NOTE | 2019-07-26 19:30 | NUR ---
DISCHARGE INSTRUCTION GIVEN TO PATIENT AND JULISSA AT BEDSIDE. THEY ARE AWARE PATIENT GOING TO [facility] FOR IV ANTIBIOTICS FOR 5 DAYS WELL CONTINUING MRSA TREATMENT. PATIENT CHANGED AND CLEAN AND HAVE BEEN CHANGED INTO TRANSFER CLOTHING.
--- NOTE | 2019-07-26 19:31 | NUR ---
RECEIVED BEDSIDE REPORT FROM DAY RN.AT PATIENT AWAKE AND ALERTX4, RESPIRATIONS EVEN AND UNLABORED ON ROOM AIR, PATIENT REPOSITIONED REQUESTED. UPDATED BOARD. UPDATED PATIENT WITH PLAN OF CARE. HE VERBALIZED UNDERSTANDING. IV SITE INTACT, PATENT, ASYMPTOMATIC, INFUSING IVF WELL. PATIENT HAS DOMINGUEZ CATHETER DRAINING TO GRAVITY WITH YELLOW CLEAN URINE. SAFETY AND ISOLATION PRECAUTIONS IN PLACE, BED IN LOWEST POSITION WITH ALARM AND BRAKES ON, IS AT BEDSIDE. PT AWARE BE TRANSFERRED TO [facility] TO CONTINUE IV ZOSYN X 5DAYS. CALL LIGHT WITHIN REACH, WILL CONTINUE TO MONITOR PATIENT.
[2019-07-26] MEDS: MUPIROCIN CA NASAL 2% 1GM TUBE NS SCH (20:03)
[2019-07-26] MEDS: CHLORHEXADINE GLUC 2% CLOTH TP SCH (20:03)
--- NOTE | 2019-07-26 20:03 | NUR ---
SHAHRZAD MEDICATIONS GIVEN PER ORDERS. VSS. PT TOLERATED WELL. ALL SAFETY MEASURES ARE IN PLACE. WAITING FOR TRANSPORT. CALL LIGHT IS WITHIN REACH. AT BEDSIDE.
[2019-07-26] MEDS: ATORVASTATIN 20 MG TAB PO SCH (20:04)
[2019-07-26] MEDS: HYDROcodone/APAP 7.5/325 MG 1 TAB PO PRN (20:12)
--- NOTE | 2019-07-26 20:20 | NUR ---
[facility] CAME TO PICK PT. PT IS STABLE LEAVING WITH IV ON ARVIN AND DOMINGUEZ CATH. REPORT WAS GIVEN BY CURTIS RN GOING TO ROOM 208C. ARM BAND REMOVED. NO BELONGINGS. D/C PAPERS WERE SIGN.
== END 2019-07-26 20:20 | DRG 690 ==
LOC: MED 13:25 → MMU 15:47 → MTU 17:14
PROVIDERS: ADMIT General Practice; ATTEND General Practice
DX: N39.0 Urinary tract infection, site not specified (principal); L03.116 Cellulitis of left lower limb; E44.0 Moderate protein-calorie malnutrition; G82.20 Paraplegia, unspecified; G90.8 Other disorders of autonomic nervous system; I10 Essential (primary) hypertension; Z66 Do not resuscitate; F32.9 Major depressive disorder, single episode, unspecified; E83.42 Hypomagnesemia; B95.5 Unspecified streptococcus as the cause of diseases classified elsewhere; E78.5 Hyperlipidemia, unspecified; Z23 Encounter for immunization; Z68.24 Body mass index [BMI] 24.0-24.9, adult; Z87.891 Personal history of nicotine dependence; Z88.5 Allergy status to narcotic agent
CPT/HCPCS: 36415; 51702; 71045; 80048; 80053; 80202; 81001; 82140; 82150; 83036; 83605; 83690; 83735; 83880; 84100; 84436; 84439; 84443; 84479; 84484; 85025; 85610; 85730; 87040; 87070; 87075; 87081; 87086; 87186; 87205; 93005; 93970; 96374; 99285; J0696; J1644; J1885; J1956; J2270; J2543; J3370; J3475; J7030; J7060; Q0092

== ENCOUNTER 2019-08-04 14:59 | Emergency (ER) | payer OTHER, MEDICAID ==
[~2019-08-04] VITALS: Ht 177.8 cm; Wt 74.8 kg
[~2019-08-04 14:59] MED LIST changes: +ATOR10TA PO; +BACTO TP; +CHLO480L2 TP; +ENAL5TAB34 PO; -LINA145C PO; -SULF-58 PO; +ZOS3.375I IV
[2019-08-04] MEDS ORDERED: NACL 0.9% 1,000 ML IV SCH (15:04)
--- NOTE | 2019-08-04 15:04 | NUR ---
PATIENT BIBA TAKEN TO BED 4
[2019-08-04 15:08] VITALS: BP 130/61
--- NOTE | 2019-08-04 15:23 | NUR ---
73 Y/O MALE BIB BLS FROM [facility] C/O LOWER RIGHT ABD PAIN X3 DAYS, CONSTIPATION, RIGHT BACK PAIN, 8/10 , SHARP. ABD IS DISTENDED/FIRM/ TENDER ON LOWER RIGHT QUADRANT. BOWEL SOUNDS NORMO ACTIVE IN ALL QUADRANTS. RESP EVEN AND UNLABORED. LUNG SOUNDS CLEAR IN BILAT LOBES. DENIES CP/SOB. AAOX4, CAP REFILL <3. PT IS PARAPLEGIC/ NON AMBULATORY. DOMINGUEZ CATH PRESENT, 500ML IN BAG. BED IN LOWEST POSITION, SIDE RAILS UP. NKA
[2019-08-04 15:32] LABS: APPEARANCE,URINE CLEAR (CLEAR); BILIRUBIN,URINE NEGATIVE (NEGATIVE); BLOOD, URINE TRACE-I (NEGATIVE); COLOR,URINE YELLOW (YELLOW); LEUKOCYTE ESTERASE ,URINE TRACE (NEGATIVE); NITRITE, URINE NEGATIVE (NEGATIVE); PH,URINE 7.5 (5.0-9.0); UGLUCOSE NEGATIVE (NEGATIVE)
[2019-08-04 15:51] LABS: RBC,URINE 0 /HPF (0-5); WBC,URINE 0-5 /HPF (0-5); YEAST,URINE Many /HPF (None Seen)
[2019-08-04] MEDS ORDERED: MORPHINE SULFATE 4 MG/ML SYR IVP ONE ×2 (16:00→18:35)
[2019-08-04] MEDS ORDERED: SODIUM PHOSPHATE 118 ML ENEM RC ONE (16:00)
[2019-08-04 16:09] LABS: BASOPHILS # (AUTO) 0.1 K/uL (0.00-0.22); EOSINOPHILS # (AUTO) 0.1 K/uL (0-0.4); EOSINOPHILS % (AUTO) 1.9 % (0.0-4.0); HEMOGLOBIN 9.5 g/dL (12.0-18.0); LYMPHOCYTES # (AUTO) 0.6 K/uL (2.0-11.5); MEAN CORPUSCULAR HEMOGLOBIN 24 pg (27-31); MEAN CORPUSCULAR HGB CONC 32 g/dL (33-37); MEAN CORPUSCULAR VOLUME 77.1 fL (80-94); MONOCYTES # (AUTO) 0.8 K/uL (0.8-1.0); MONOCYTES % (AUTO) 13.4 % (1.7-9.3); NEUTROPHILS # (AUTO) 4.6 K/uL (1.8-7.7); NEUTROPHILS % (AUTO) 74.7 % (42.2-75.2); PLATELET COUNT (AUTO) 433 K/uL (140-450); RED BLOOD CELL COUNT(AUTO) 3.89 MIL/uL (4.20-6.10); RED CELL DISTRIBUTION WIDTH 22.8 % (11.6-13.7); WHITE BLOOD COUNT (AUTO) 6.1 K/uL (4.8-10.8)
[2019-08-04 16:26] LABS: ANION GAP 12.3 (8-16); ASPARTATE AMINOTRANSFERASE 12 U/L (15-37); CARBON DIOXIDE 28.9 mmol/L (21-32); CHLORIDE 98 mmol/L (98-107); CREATININE 0.8 mg/dL (0.6-1.3); GLUCOSE 92 mg/dL (74-106); POTASSIUM 4.2 mmol/L (3.5-5.1); SODIUM SERUM 135 mmol/L (136-145); TOTAL BILIRUBIN 0.2 mg/dL (0.0-1.0); UREA NITROGEN, BLOOD 11 mg/dL (7-18)
--- NOTE | 2019-08-04 16:35 | NUR ---
PT IN BED ON BED ZALDIVAR, FEELS THE URGE TO HAVE TO HAVE A BM. BED IS LOWEST POSITION WITH BOTH SIDE RAILS UP. AT BEDSIDE.
--- NOTE | 2019-08-04 17:06 | NUR ---
LARGE BOWEL MOVEMENT PASSED BY PT IN BEDPAN
[2019-08-04 17:13] LABS: AMYLASE 59 U/L (25-115); LIPASE 114 U/L (73-393)
--- NOTE | 2019-08-04 17:50 | NUR ---
SON AT BEDSIDE. PT RESTING IN BED. VSS. ALL NEEDS MET AT THIS TIME
--- NOTE | 2019-08-04 19:05 | NUR ---
Patient refused transport to [facility]. He states he wishes to return home. and son are at home and states ability to take care of patient at home.
--- NOTE | 2019-08-04 19:15 | NUR ---
Spoke to son. The son states that the patient lives at home with the rest of his family. The and son are primary home caregivers for the patient.
--- NOTE | 2019-08-04 19:30 | NUR ---
Spoke to Genie ANDREA production clerks supervisor at [facility]. Informed her that the patient does not wish to return to [facility] and his family is taking him home.
--- NOTE | 2019-08-04 19:32 | NUR ---
RECIVED REPORT FROM ARTEM ANDREA. AT BEDSIDE. PT AAO X 4. VSS. PT AAO X4.
--- NOTE | 2019-08-04 20:47 | NUR ---
PT AAO X4. RESPIRATIONS ARE EVEN AND UNLABORED. DENIES C/O PAIN AT THIS TIME. PT HAD 1 SMALL BM. BM WAS SOFT, FORMED AND BROWN. PERINEAL CARE DONE. SKIN LEFT CLEAN AND DRY.
[2019-08-04 22:20] VITALS: BP 132/88
--- NOTE | 2019-08-04 22:20 | NUR ---
Patient discharged with v/s stable. Written and verbal after care instructions given and explained. Patient alert, oriented and verbalized understanding of instructions. Wheel Chair Assisted with by caregiver. All questions addressed prior to discharge. ID band removed. Patient advised to follow up with PMD. Rx of COLACE, PREDNISONE given. Patient educated on indication of medication including possible reaction and side effects. Opportunity to ask questions provided and answered.
--- NOTE | 2019-08-05 12:03 | NUR ---
Late entry. COnfirmed with RN that 0.9 NS IV completed at 1705
== END 2019-08-04 22:20 | disposition home or self-care (01) ==
LOC: MED 14:59
DX: K59.00 Constipation, unspecified (principal); R50.9 Fever, unspecified; I10 Essential (primary) hypertension; Z86.73 Personal history of transient ischemic attack (TIA), and cerebral infarction without residual deficits; Z79.899 Other long term (current) drug therapy; Z98.890 Other specified postprocedural states
CPT/HCPCS: 36415; 71045; 74176; 80053; 81001; 82150; 83605; 83690; 83880; 84484; 85025; 87040; 87086; 93005; 96374; 96376; 99285; J2270; J7030; Q0092